=== PATIENT | male | born 1985 | race Caucasian/White ===

== ENCOUNTER 2021-10-15 22:18 | Emergency (ER) | payer BC ==
[~2021-10-15] VITALS: Ht 190.5 cm; Wt 100.6 kg
[2021-10-15 23:24] LABS: CLARITY URINE CLEAR (CLEAR); COLOR URINE YELLOW (YELLOW); KETONES URINE TRACE (NEGATIVE); LEUKOCYTE ESTERASE URINE NEGATIVE (NEGATIVE); NITRITE URINE NEGATIVE (NEGATIVE); OCCULT BLOOD URINE NEGATIVE (NEGATIVE); PROTEIN URINE NEGATIVE (NEGATIVE)
[2021-10-16 01:00] VITALS: BP 124/72
== END 2021-10-16 01:30 | disposition home or self-care (01) ==
LOC: ER 22:18
DX: S30.811A Abrasion of abdominal wall, initial encounter (principal); X58.XXXA Exposure to other specified factors, initial encounter; Y93.89 Activity, other specified; Y92.018 Other place in single-family (private) house as the place of occurrence of the external cause
CPT/HCPCS: 81003; 99283